=== PATIENT | male | born 1955 | race Caucasian/White ===

== ENCOUNTER 2021-02-18 09:24 | Emergency (ER) | payer SELFPAY ==
[2021-02-18 09:25] VITALS: BP 182/100; PULSE 84; RESP 14; TEMP 36.8; O2SAT 99; BMI 29.7
--- NOTE | 2021-02-18 09:51 | EDS_ITS ---
HPI History of Present Illness Chief Complaint: Abd Pain Informant: patient Narrative Narrative: Patient presents with suprapubic pressure and frequent urination. It started with frequent urination about 2 days ago. He states it does not really burgos when he urinates but he does get pressure above the bladder. He states he has had kidney stones many times but that is normally sharp pain and is very different from this. He states this is nothing like his kidney stones. He has no nausea vomiting or diaphoresis. He is eating and drinking normally. He is moving his bowels normally. His urine was cloudy initially. But he has been drinking a lot more water now and it seems to have cleared up. He does have a very slight ache in the left kidney that has developed over the last half of the day. But he states it is very mild and nothing like a kidney stone sharp pain. He does not feel systemically ill. Past medical history includes heart disease Medications include Plavix, cholesterol meds, metoprolol No known drug allergies He has had prior cardiac stents Lives independently [facility] Home Medications celecoxib 100 mg PO DAILY 02/18/21 [History Last Taken Unknown] Allergy/AdvReac Type Severity Reaction Status Date / Time No Known Allergies Allergy Verified 02/18/21 09:26 Social History Smoking Status: Never smoker ROS ROS ED Constitutional Constitutional ED: Denies chills, fever(s) or sweats Eyes Eyes: Denies blurry vision ENT ENT ED: Denies rhinorrhea Cardiovascular Cardiovascular: Denies chest pain, palpitations or racing heartbeat Respiratory/Chest Respiratory/Chest: Denies cough or dyspnea Gastrointestinal Gastrointestinal: Reports abdominal pain and other Details: See history of present illness. ; Denies constipation, diarrhea, melena, nausea or vomiting Genitourinary Genitourinary ED: Reports dysuria, urinary frequency and other Details: See present illness ; Denies hematuria Musculoskeletal Musculoskeletal: Reports back pain; Denies arthralgias or neck pain Integumentary Denies rash Neurologic Neurologic: Denies headache(s), paresthesias or weakness Endocrine Endocrinology: Denies polydipsia Allergic/Immunologic Allergic/Immunologic ED: Denies urticaria EXAM Physical Exam Const Vital Signs: 02/18/21 09:25 Temperature 98.3 F Temperature Source Temporal Pulse Rate 84 Respiratory Rate 14 Blood Pressure 182/100 H Blood Pressure Mean 127 Pulse Ox 99 Oxygen Delivery Method Room Air Positive well nourished and well developed Constitutional Narrative: Patient is sitting calmly in bed. He does not look uncomfortable. General Appearance ED: well developed and NAD HEENT Reports moist mucous membranes Negative for trauma Eyes General Eye ED: Negative for pale conjunctiva or scleral icterus Chest Wall Negative for inspection of chest normal Resp No normal respiratory effort and No clear to auscultation bilaterally Cardio Negative for regular rate or regular rhythm GI normal to inspection, nondistended, normoactive bowel sounds and non-tender GI Narrative: Patient feels a little pressure in the suprapubic area. However, there is no tenderness. There is no tenderness anywhere else in his abdomen. I hear no bruit. I feel no mass. I do not feel a definitively enlarged bladder either. Palpation: soft Back/Spine no CVA tenderness Back/Spine Narrative: Although patient states he has little soreness on the left back there is no CVA tenderness. There is no rash. No vesicles Extremity normal to inspection Neuro oriented x3 Sensorium / Orientation: alert Psych mental status grossly normal Skin no rashes or lesions noted MDM MDM MDM Narrative Medical decision making narrative: Patient's urine is clean. It is clear with negative nitrites, negative leukocyte esterase, and no red cells or white cells. His bladder scan was only 28 cc. I went back and talked to the patient. He is having symptoms but we do not have an explanation at this point. He does have a history of kidney stones. We will pursue work-up further with blood work and CT scan at this time. Blood work including CBC electrolytes show no acute process. CAT scan showed some mild left hydro and appeared to be consistent with a recently passed stone. Patient states he does feel better and has not been going to the bathroom as much as he was before. I do not think he needs any antibiotics or acute treatment. I think if he develops pain fevers vomiting or other concerns he should return. He is comfortable with this plan. Lab Data Attestation: I reviewed the patient's lab results. Labs: Laboratory Results - last 24 hr 02/18/21 02/18/21 02/18/21 09:30 10:28 10:28 WBC 6.3 RBC 5.16 Hgb 15.4 Hct 47.7 MCV 92.4 MCH 29.8 MCHC 32.3 RDW Std Deviation 46.3 H RDW Coeff of Mariza 13.5 Plt Count 182 MPV 9.4 Immature Gran % (Auto) 0.300 Neut % (Auto) 69.5 Lymph % (Auto) 22.3 [place] % (Auto) 6.0 Eos % (Auto) 1.3 Baso % (Auto) 0.6 Absolute Neuts (auto) 4.4 Absolute Lymphs (auto) 1.40 Nucleated RBC % 0 Sodium 140 Potassium 4.2 Chloride 110 H Carbon Dioxide 27.0 Anion Gap 3 L BUN 17 Creatinine 1.03 Estim Creat Clear Calc 74.81 Est GFR (MDRD) Af Amer 93 Est GFR (MDRD) Non-Af 77 BUN/Creatinine Ratio 16.5 Glucose 103 Calcium 8.6 Urine Color Yellow Urine Clarity Clear Urine pH 6.5 Ur Specific [place] 1.010 Urine Protein 15 H Urine Glucose (UA) Normal Urine Ketones Negative Urine Occult Blood 50 H Urine Nitrite Negative Urine Bilirubin Negative Urine Urobilinogen Normal Ur Leukocyte Esterase Negative Urine RBC 0 SEEN Urine WBC 0 SEEN Ur Squamous Epith Cells 0 SEEN Urine Bacteria 0 SEEN Urine Mucus 0 SEEN Radiography Diagnostic Testing: Radiology Impression Abdomen/Pelvis CT 02/18/21 10:23 IMPRESSION: Small bilateral nonobstructive intrarenal calculi. Mild degree of left hydronephrosis and left hydroureter most likely secondary to a recently passed left ureteral calculus. Electronically Signed: Shawn Hugo MD at 10:57 EDT , Service support , Discharge Plan Triage Chief Complaint: Abd Pain ED Provider: Asael James Dx/Rx/DC Orders Clinical Impression: Urinary frequency, Left renal stone Instructions: Kidney Stones Expectant Tx Prescriptions: No Action celecoxib 100 mg capsule 100 mg PO DAILY RF: 0 Primary Care Provider: Care Physician,No Primary Referrals: James Abbott MD [STAFF PHYSICIAN] - 3-5 Days if not improving Care Physician,No Primary [Primary Care Provider] - Disposition Disposition: Home, Self Care
[2021-02-18 09:53] LABS: Bacteria 0 SEEN /hpf (None Seen); Mucous, Urine 0 SEEN /hpf (<or=2+); Red Blood Cells-Urine 0 SEEN /hpf (0-5); Squamous Epithelial Cells - UA 0 SEEN /hpf (0-5); White Blood Cells 0 SEEN /hpf (0-5)
[2021-02-18 10:05] LABS: Color, Urine Yellow (Yellow); Glucose, Dipstick Normal (Normal); Ketone-Dipstick Negative (Negative); Leukocyte Esterase-Dipstick Negative /ul (Negative); Nitrite-Dipstick Negative (Negative); Occult Blood-Urine 50 /ul (Negative); Protein-Dipstick 15 mg/dl (Negative); Urine Bilirubin Dipstick Negative (Negative); Urine Clarity Clear (Clear); Urine Urobilinogen Normal (Normal); Urine pH 6.5 (5.0 - 8.0)
--- NOTE | 2021-02-18 10:23 | CT_ITS ---
STUDY: CT ABDOMEN AND PELVIS WITHOUT CONTRAST REASON FOR EXAM: Male, 65 years old. Abdominal pain and flank pain since yesterday. RADIATION DOSAGE (If Supplied By Facility): CTDIvol = ( 14.18 ) mGy, DLP = ( 730.67 ) mGycm TECHNIQUE: Transaxial images were obtained from the dome of the diaphragm to the symphysis pubis without oral contrast, and without intravenous contrast. Sagittal and coronal images were reconstructed. Individualized dose optimization techniques were used for this CT. COMPARISON: None. FINDINGS: The visualized lung bases are unremarkable. Coronary artery calcification. Normal liver. Normal gallbladder and extrahepatic biliary system. There are multiple benign calcified granulomata of the spleen. Normal pancreas. Normal bilateral adrenal glands. There is a 2.5 mm nonobstructive calculus in the upper pole calyx of the right kidney. Mild degree of left hydronephrosis and left hydroureter down to the ureterovesical junction. A tiny calcific density is seen at the base of the bladder on the left side suggestive of recently passed calculus. There is evidence of a 2.5 mm nonobstructive calculus in the lower pole calyx of the left kidney. This also evidence of a 1.6 cm cyst in the anterior lateral portion of the left kidney. Normal visualized stomach. Normal small intestine. There are multiple colonic diverticula consistent with diverticulosis. The appendix is visualized and appears normal. There is diffuse atherosclerotic calcification of the abdominal aorta and its major visceral branches, without a demonstrated aneurysm. Normal inferior vena cava. Normal retroperitoneum. Normal urinary bladder. There is a small umbilical hernia containing fat. There are mild degenerative changes of the visualized lumbar spine. CT/Abdomen/Pelvis without Cont IMPRESSION: Small bilateral nonobstructive intrarenal calculi. Mild degree of left hydronephrosis and left hydroureter most likely secondary to a recently passed left ureteral calculus. Electronically Signed: Shawn Hugo MD at 10:57 EDT , Service support ,
[2021-02-18 10:35] LABS: Absolute Neutrophil Count 4.4 X10^3/uL (2.0-7.7); Basophil# 0.04 X10^3/uL; Basophil% 0.6 % (0-1); Eosinophil# 0.08 X10^3/uL; Eosinophils% 1.3 % (0-5); Hematocrit 47.7 % (40-54); Hemoglobin 15.4 g/dL (13.0-16.5); Lymphocyte % 22.3 % (19-41); Mean Corp Hgb Conc 32.3 g/dL (32-36); Mean Corpuscular Hgb 29.8 pg (27.0-32.0); Mean Corpuscular Volume 92.4 fL (80-94); Mean Platelet Vol. 9.4 fl (6.2-12.0); Monocyte# 0.38 X10^3/uL; NRBC Flagged by Analyzer 0 % (0-5); Neutrophil # 4.37 X10^3/uL (2.7-7.7); Neutrophil % 69.5 % (47-70); Platelet Count 182 K/mm3 (150-450); RBC Distribution Width CV 13.5 % (11.6-14.6); RBC Distribution Width SD 46.3 fl (35.1-43.9); Red Blood Count 5.16 M/mm3 (4.6-6.2); White Blood Count 6.3 K/mm3 (4.4-11.0)
[2021-02-18 10:51] LABS: Anion Gap 3 (5-15); BUN 17 mg/dL (7-18); BUN/Creat Ratio 16.5 RATIO (10-20); Calcium,Total 8.6 mg/dL (8.5-10.1); Chloride 110 mmol/L (98-107); Creatinine, Serum 1.03 mg/dL (0.70-1.30); EST Glomerular Filtration Rate 77 mL/min (>60); Est Glom Filt Rate - Afr Amer 93 mL/min (>60); Estimated Creatinine Clearance 74.81 ml/min; Glucose 103 mg/dL (74-106); Potassium 4.2 mmol/L (3.5-5.1); Sodium Level 140 mmol/L (136-145)
== END 2021-02-18 12:01 | disposition home or self-care (01) ==
PROVIDERS: Emergency Provider Emergency Medicine
DX: N13.2 Hydronephrosis with renal and ureteral calculous obstruction (principal); R35.0 Frequency of micturition; Z87.442 Personal history of urinary calculi
CPT/HCPCS: 74176; 80048; 81001; 85025; 87086; 99283; A4216

== ENCOUNTER 2021-08-03 15:38 | Emergency (ER) | payer MEDICAID, SELFPAY ==
[2021-08-03 15:39] VITALS: BP 173/86; PULSE 78; RESP 16; TEMP 35.8; O2SAT 100; BMI 29.7
[2021-08-03 15:42] VITALS: BP 173/86; PULSE 78; RESP 16; TEMP 35.8; O2SAT 100
[2021-08-03 15:51] VITALS: O2SAT 100
--- NOTE | 2021-08-03 15:52 | EKG12_ITS ---
Test Reason : CP Blood Pressure : / mmHG Vent. Rate : 069 BPM Atrial Rate : 069 BPM P-R Int : 144 ms QRS Dur : 090 ms QT Int : 430 ms P-R-T Axes : 019 039 029 degrees QTc Int : 460 ms Normal sinus rhythm Normal ECG Confirmed by ABUNDIO MANRIQUE, SCOTTIE ([id number]), newspaper managing editor SARAH NEFF ([id number]) on 08/05/2021 10:17:22 AM Referred By: Confirmed By:SCOTTIE DEL CASTILLO MD
--- NOTE | 2021-08-03 15:53 | EDS_ITS ---
HPI History of Present Illness Chief Complaint: Shortness of Breath Informant: patient Onset/Context/Timing Onset: Days Maximum Severity: Moderate Narrative Narrative: Patient presents secondary to increase shortness of breath with nausea, vomiting, fever, body aches. He states he developed mild symptoms over the weekend and tested positive for Covid yesterday. He feels he has chest felipe estion but is not bringing up any sputum when he coughs. He is a smoker but denies any underlying lung disease. He is unvaccinated. [facility] Medical History Kidney stone Home Medications aspirin 81 mg PO DAILY 08/03/21 [History Last Taken Unknown] guaifenesin [Mucinex] 1,200 mg PO BID PRN #10 tab 08/03/21 [Rx Last Taken Unknown] metoprolol tartrate 50 mg PO DAILY 08/03/21 [History Last Taken Unknown] promethazine 25 mg PO TID PRN #20 tab 08/03/21 [Rx Last Taken Unknown] ramipril 2.5 mg PO DAILY 08/03/21 [History Last Taken Unknown] Allergy/AdvReac Type Severity Reaction Status Date / Time No Known Allergies Allergy Verified 08/03/21 15:38 Social History Smoking Status: Never smoker ROS ROS ED Constitutional Constitutional ED: Reports chills and fever(s) Eyes Eyes: Denies change in vision ENT ENT ED: Denies sore throat Cardiovascular Cardiovascular: Denies chest pain or palpitations Respiratory/Chest Respiratory/Chest: Reports cough and dyspnea; Denies sputum Gastrointestinal Gastrointestinal: Reports diarrhea, nausea and vomiting; Denies abdominal pain Genitourinary Genitourinary ED: Denies dysuria Musculoskeletal Musculoskeletal: Reports myalgias; Denies back pain Integumentary Denies rash Neurologic Neurologic: Reports headache(s) and weakness Allergic/Immunologic Allergic/Immunologic ED: Denies urticaria EXAM Physical Exam Const Vital Signs: 08/03/21 15:39 08/03/21 15:42 08/03/21 15:51 Temperature 96.5 F L 96.5 F L Temperature Source Temporal Temporal Pulse Rate 78 78 Respiratory Rate 16 16 Respiratory Effort Normal Non-Labored Respiratory Depth Normal Respiratory Pattern Normal Blood Pressure 173/86 H 173/86 H Blood Pressure Mean 115 115 Pulse Ox 100 100 Oxygen Delivery Method Room Air Room Air Room Air 08/03/21 16:24 08/03/21 16:40 Temperature Temperature Source Pulse Rate 76 Respiratory Rate 20 H Respiratory Effort Respiratory Depth Respiratory Pattern Blood Pressure 154/69 H Blood Pressure Mean 97 Pulse Ox 97 Oxygen Delivery Method Room Air Positive well nourished and well developed General Appearance ED: well developed HEENT Reports moist mucous membranes Eyes PERRL and EOMs intact bilaterally Neck supple Chest Wall inspection of chest normal and palpation of chest normal Resp normal respiratory effort and clear to auscultation bilaterally Cardio regular rate and regular rhythm GI non-tender Auscultation: hypoactive bowel sounds Palpation: soft Extremity normal to inspection Neuro oriented x3 and no sensory deficits noted Sensorium / Orientation: alert Motor Exam: strength 5/5 throughout Psych mental status grossly normal Skin no rashes or lesions noted MDM MDM MDM Narrative Medical decision making narrative: Patient given Zofran and a 500 cc IV fluid bolus. Chest x-ray, EKG, lab work obtained. Lab Data Attestation: I reviewed the patient's lab results. Labs: Laboratory Results - last 24 hr 08/03/21 08/03/21 08/03/21 15:50 15:50 16:05 WBC 3.3 L RBC 4.60 Hgb 14.4 Hct 42.9 MCV 93.3 MCH 31.3 MCHC 33.6 RDW Std Deviation 48.0 H RDW Coeff of Mariza 14.0 Plt Count 152 MPV 10.0 Immature Gran % (Auto) 0.900 Neut % (Auto) 56.5 Lymph % (Auto) 34.2 [place] % (Auto) 7.2 Eos % (Auto) 0.9 Baso % (Auto) 0.3 Absolute Neuts (auto) 1.9 L Absolute Lymphs (auto) 1.14 Nucleated RBC % 0 Sodium 139 Potassium 3.5 Chloride 105 Carbon Dioxide 28.0 Anion Gap 6 BUN 20 H Creatinine 1.19 Estim Creat Clear Calc 63.90 Est GFR (MDRD) Af Amer 79 Est GFR (MDRD) Non-Af 65 BUN/Creatinine Ratio 16.8 Glucose 94 Lactic Acid 1.3 Calcium 8.1 L Total Bilirubin 0.30 AST 104 H ALT 154 H Alkaline Phosphatase 113 Total Protein 6.8 Albumin 3.3 Globulin 3.5 Albumin/Globulin Ratio 0.9 Radiography Chest X-Ray - ED: 1 View, Read by ED Physician, Normal, Heart, Lungs and Mediastinum Diagnostic Testing: Clinical Impression(s) from Imaging Studies Chest X-Ray 08/03/21 15:55 IMPRESSION: Nonacute portable x-ray examination of the chest. Electronically Signed: Bharat Bernstein MD (Brooks) at 16:09 EST Reading Location ID and State: [address] [place] [address] , Service support , EKG Initial EKG: Attestation: I personally reviewed and interpreted this EKG as follows: Interpretation: Sinus Rhythm (Sinus at 69 with no acute ischemia.) Treatment and Re-Evaluation Comments:: On repeat evaluation patient resting comfortably. Test results discussed with him. Chest x-ray is clear per my interpretation. Lab work unremarkable other than a slight increase in ALT and AST. This is often seen with Covid infection. Patient reportedly had tried Zofran at home but it gave him a headache. He will be given prescription for Phenergan as well as Mucinex. Supportive measures were discussed. Return instructions given. Discharge Plan Triage Chief Complaint: Shortness of Breath ED Provider: Laurence Mast Dx/Rx/DC Orders Clinical Impression: COVID-19 Instructions: Coronavirus Disease 2019 (COVID-19): Overview, Coronavirus Disease 2019 (COVID-19): Caring for Yourself or Others Prescriptions: New promethazine 25 mg tablet 25 mg PO TID PRN (Reason: nausea and vomiting) Qty: 20 RF: 0 Mucinex 1,200 mg tablet extended release 12hr 1,200 mg PO BID PRN (Reason: congestion) Qty: 10 RF: 0 No Action ramipril 2.5 mg capsule 2.5 mg PO DAILY RF: 0 metoprolol tartrate 50 mg tablet 50 mg PO DAILY RF: 0 aspirin 81 mg Capsule 81 mg PO DAILY RF: 0 Primary Care Provider: Harvinder Franklin Referrals: Harvinder Franklin MD [Primary Care Provider] - 1-2 Weeks Disposition Disposition: Home, Self Care
--- NOTE | 2021-08-03 15:55 | RAD_ITS ---
STUDY: X-RAY CHEST REASON FOR EXAM: Male, 66 years old. cough TECHNIQUE: AP COMPARISON: None. FINDINGS: EKG leads project over the chest. The lungs are clear and expanded. There is no demonstrated pleural abnormality. Normal size heart. Normal mediastinum and chaparro. Normal visualized pulmonary arteries. Normal visualized aortic arch and descending thoracic aorta. Normal visualized thoracic spine. Normal visualized ribs, clavicles, and shoulders. There is no demonstrated abnormality of the visualized soft tissue structures of the upper abdomen. RAD/Chest 1 View (Portable) IMPRESSION: Nonacute portable x-ray examination of the chest. Electronically Signed: Bharat Bernstein MD (Brooks) at 16:09 EST ,
[2021-08-03] MEDS: Ondansetron 4 MG/2 ML Vial IV (16:03)
--- NOTE | 2021-08-03 16:08 | NURSING ---
NO OLD EKGS
[2021-08-03 16:16] LABS: Absolute Lymphocyte Count 1.14 X10^3/uL (0.83-4.51); Absolute Neutrophil Count 1.9 X10^3/uL (2.0-7.7); Basophil# 0.01 X10^3/uL; Basophil% 0.3 % (0-1); Eosinophil# 0.03 X10^3/uL; Eosinophils% 0.9 % (0-5); Hematocrit 42.9 % (40-54); Hemoglobin 14.4 g/dL (13.0-16.5); Lymphocyte # 1.14 X10^3/ul (0.83-4.51); Lymphocyte % 34.2 % (19-41); Mean Corp Hgb Conc 33.6 g/dL (32-36); Mean Corpuscular Hgb 31.3 pg (27.0-32.0); Mean Corpuscular Volume 93.3 fL (80-94); Monocyte# 0.24 X10^3/uL; Monocyte% 7.2 % (0-10); NRBC Flagged by Analyzer 0 % (0-5); Neutrophil # 1.88 X10^3/uL (2.7-7.7); Neutrophil % 56.5 % (47-70); Platelet Count 152 K/mm3 (150-450); White Blood Count 3.3 K/mm3 (4.4-11.0)
[2021-08-03 16:24] VITALS: PULSE 76; RESP 20; O2SAT 97
[2021-08-03 16:33] LABS: ALB/GLOB Ratio 0.9 RATIO (0.9-2.4); AST(SGOT) 104 U/L (15-37); Alanine Aminotransfer ALT/SGPT 154 U/L (16-61); Albumin, Serum 3.3 g/dL (3.2-5.0); Alkaline Phosphatase 113 U/L (45-117); Anion Gap 6 (5-15); BUN 20 mg/dL (7-18); BUN/Creat Ratio 16.8 RATIO (10-20); Calcium,Total 8.1 mg/dL (8.5-10.1); Chloride 105 mmol/L (98-107); Creatinine, Serum 1.19 mg/dL (0.70-1.30); EST Glomerular Filtration Rate 65 mL/min (>60); Est Glom Filt Rate - Afr Amer 79 mL/min (>60); Globulin 3.5 g/dL (2.2-4.2); Glucose 94 mg/dL (74-106); Potassium 3.5 mmol/L (3.5-5.1); Protein, Total 6.8 g/dL (6.4-8.2); Sodium Level 139 mmol/L (136-145)
[2021-08-03 16:40] VITALS: BP 154/69
[2021-08-03 16:42] LABS: Lactic Acid 1.3 mmol/L (0.4-1.9)
--- NOTE | 2021-08-04 16:40 | CASEMGMT ---
ER DC F/u Call: Seen in ER 2.03.16 for +Covid day prior to presentation. CC: SOB. DC'd with no Home O2 needed. Called patient's listed number, patient answered and this continuity writer introduced self and role. Patient states felling better today and able to get/keep PO's down which is an improvement. Confirmed picked up DC rx Mucinex and antiemetic. Does not have a Pulse Ox at home and encouraged patient to obtain one to test O2 levels if feeling worse and goal to keep oxygenation >91%. Has called PCP Dr Franklin and was told had to wait 20 days prior to office f/u. Patient denies any concerns or needs at this time. Kaitlynn Butts RNCM
== END 2021-08-03 17:15 | disposition home or self-care (01) ==
PROVIDERS: Emergency Provider Emergency Medicine; PCP Family Medicine; Visit Provider Emergency Medicine
DX: U07.1 COVID-19 (principal); F17.200 Nicotine dependence, unspecified, uncomplicated; Z87.442 Personal history of urinary calculi
CPT/HCPCS: 71045; 80053; 83605; 85025; 93005; 96361; 96374; 99284; J7030; J2405

== ENCOUNTER 2022-04-24 08:47 | Emergency (ER) | payer MEDICARE, MEDICAID, SELFPAY ==
[2022-04-24 08:48] VITALS: BP 166/85; PULSE 82; RESP 16; TEMP 36.3; O2SAT 97; BMI 31.5
--- NOTE | 2022-04-24 09:32 | EDS_ITS ---
HPI HPI - Psych History of Present Illness Chief Complaint: Mental Health Informant: patient Narrative Narrative: Patient sent to the ED after calling his PCP office for evaluation. Reports having depression symptoms. Patient moved here from [place] 2 years ago, staying with his 43-year-old son. Reports he lived in [place] for 23 years. He is . 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 He was on Worker's Compensation for the past 18 months. He states 3 to 4 months ago Worker's Compensation was canceled. He has been applying for multiple jobs, 2 months ago had a job for a month however the position was discontinued. He is having trouble finding work. He had a savings account, his son has required more additional money for assistance. He states he is now out of money. His son actually took in 4 other step nephews and nieces to the home. Between patient and 2 of the nieces and nephews, they are paying the rent. He reports his son is still having trouble paying the bills for some reason. His son is into alcohol and marijuana. Patient does not drink alcohol or smoke marijuana. He states with no job and income he stays in his room he has decreased motivation. He had had thoughts stated better if he is not around he has not had any specific plans. He applied for Social Security he states 2 months ago states he has been approved to start in May. He is here looking for enlightenment. [facility] Medical History (Updated 04/24/22 @ 11:[address] Jatinder Ruano, DO) Back injury Kidney stone Home Medications aspirin 81 mg capsule 81 mg PO DAILY 08/03/21 [History Last Taken Unknown] metoprolol tartrate 50 mg tablet 50 mg PO DAILY 08/03/21 [History Last Taken Unknown] ramipril 2.5 mg capsule 10 mg PO DAILY 08/03/21 [History Last Taken Unknown] gabapentin 300 mg capsule 300 mg PO BID 04/24/22 [History Last Taken Unknown] lansoprazole 30 mg capsule,delayed release 30 mg PO DAILY 04/24/22 [History Last Taken Unknown] rosuvastatin 40 mg tablet 40 mg PO QHS 04/24/22 [History Last Taken Unknown] Allergy/AdvReac Type Severity Reaction Status Date / Time No Known Allergies Allergy Verified 04/24/22 08:51 Surgical History (Updated 04/24/22 @ 09:45 by Su Lara) H/O heart artery stent Social History Smoking Status: Current every day smoker tobacco type: cigarettes ROS ROS ED Constitutional Constitutional ED: Denies chills, fever(s) or sweats Eyes Eyes: Denies change in vision ENT ENT ED: Denies dysphagia or sore throat Cardiovascular Cardiovascular: Denies chest pain, leg edema, palpitations or racing heartbeat Respiratory/Chest Respiratory/Chest: Denies cough, dyspnea or dyspnea on exertion Gastrointestinal Gastrointestinal: Denies abdominal pain, diarrhea, nausea or vomiting Genitourinary Genitourinary ED: Denies dysuria, hematuria or urinary frequency Musculoskeletal Musculoskeletal: Denies back pain, extremity pain or neck pain Integumentary Denies rash or wounds Neurologic Neurologic: Denies headache(s), paresthesias or weakness Psychiatric Psychiatric: Reports depression; Denies suicidal ideation or suicidal thoughts EXAM Physical Exam Const Vital Signs: 04/24/22 08:48 Temperature 97.3 F L Temperature Source Temporal Pulse Rate 82 Respiratory Rate 16 Blood Pressure 166/85 H Blood Pressure Mean 112 Pulse Ox 97 Oxygen Delivery Method Room Air Positive well nourished and well developed General Appearance ED: well developed and NAD HEENT Reports moist mucous membranes normocephalic and atraumatic Eyes PERRL, EOMs intact bilaterally and conjunctivae normal General Eye ED: Yes normal appearance of both eyes Neck no lymphadenopathy and supple General: Negative for tenderness Chest Wall Chest: Negative for tenderness Resp normal respiratory effort and normal air movement Effort and Inspection: symmetric chest movement; Negative for respiratory distress Cardio regular rate, regular rhythm and no murmurs Peripheral Pulses: pulses 2+ throughout GI normal to inspection, nondistended, normoactive bowel sounds and non-tender Palpation: Negative for guarding or rebound tenderness present Back/Spine no CVA tenderness and no thoracic nor lumbar tenderness Extremity normal to inspection General Extremety ED: Negative for edema or tenderness General Extremity: Negative for edema Neuro oriented x3 and no sensory deficits noted Sensorium / Orientation: awake and alert Psych Psych Narrative: Slight flat affect, however open communication,. Denies current suicidal homicidal ideations. Skin no rashes or lesions noted and no wounds MDM MDM MDM Narrative Medical decision making narrative: Patient cooperative slight flat affect reported increasing depression, this is likely situational with his job and financial situation. I did speak with case management, discussed with patient in the ED, additional resources to help him. He felt better after discussing with them. They will follow-up with his PCP. All questions were answered. Discharge Plan Triage Chief Complaint: Mental Health ED Provider: Jatinder Ruano Dx/Rx/DC Orders Clinical Impression: Depression, Acute reaction to situational stress Instructions: Depression: Tips to Help Yourself, ED Depression Prescriptions: No Action ramipril 2.5 mg capsule 10 mg PO DAILY Label Comments: TAKE 1 CAPSULE BY MOUTH EVERY DAY metoprolol tartrate 50 mg tablet 50 mg PO DAILY Label Comments: TAKE 1 TABLET BY MOUTH TWICE A DAY aspirin 81 mg Capsule 81 mg PO DAILY lansoprazole 30 mg capsule,delayed release(DR/EC) 30 mg PO DAILY Label Comments: Take 1 capsule by mouth once daily. gabapentin 300 mg capsule 300 mg PO BID Label Comments: Take 1 capsule in morning, 1 capsule in afternoon and 2 capsules at night rosuvastatin 40 mg tablet 40 mg PO QHS Label Comments: TAKE 1 TABLET BY MOUTH DAILY AT BEDTIME Primary Care Provider: Harvinder Franklin Referrals: Harvinder Franklin MD [Primary Care Provider] - 3-5 Days Disposition Disposition: Home, Self Care Discharge Date/Time: 04/24/22 11:25
--- NOTE | 2022-04-24 14:11 | CM.ED ---
? Social Work Psychiatric Assessment Reason for consult: Mental Health. Patient had called PCP this morning regarding depression and the PCP had advised patient to come to the ED. Informant(s): Patient Referral Source: MD Chief Complaint: Patient reports that he came to the ED as ?there is a lot of things leading up to it?. Patient said that he has lived in [place] for 23 year and moved back to [place] with his son for 2 years. Patient said that he was on Workman?s? Comp for a period of time but they discontinued it 2-3 months ago. Patient has no income. Patient has found jobs in the past and went to the interview but was never hired. Patient resides with his son and patient has used all of his savings as his son runs out of money. Patient reports that he has no money and one week ago her electric was shut off. Patient said that his son has ?cleaned me out.. I m broke?. Patient said that one year ago patient?s son moved his 3 nieces and 1 nephew into the home also. Patient said that he has running thoughts that are ?what do I do?. Patient said that he has not eaten anything for 2 days and what he ate was green beans. Patient said that he is not getting up to shower and has not gone to the gym for 2 weeks. Patient said that ?I can?t figure things out? and he is ?not feeling right?. Patient said that he is not sleeping well. Marital/Social History: Marital Status: Living Situation: Patient resides with his son, son?s nieces, and nephews in a residence. Support/Resources: Patient said that he has no support. Later patient said that previously his support was his 14-year old granddaughter but as she is a teen ?she doesn?t have time for me?. 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 Patient is not employed. He has been approved for social security in May 2022. Mental Health Treatment/History: Yes No Patient said that he has never been to counseling, never had mental health treatment and no psych hospitalization. Patient reports he is not interested in counseling. Triggers/Stressors: Patient said that his triggers are his son and money. Coping Skills: Patient said that he used to go to the gym for coping skills but hasn?t been there for 2 weeks. Patient said that he has not gone to the gym for 2 weeks. Abuse Issues: Emotional?? Physical??? Sexual ???Comments: No history of abuse Substance Abuse Hx: Yes?? No? If so, what substance and for how long? Risk to Self/Others: ? Suicidal: Denied Comments: Patient denied any current SI. Patient denied plans or attempts regarding suicide. ? Homicidal: Denied ? Violence: Denied Comments: Mental Status Exam: ??? Orientation: x4 ??? Memory: Good Appearance/General Behavior: clean/appropriate Mood/Affect: appropriate Communication Pattern: responds to questions in Thought Process: appropriate General Intellectual Functioning:? Average? Comment: Judgment: ? fair?? ? Insight: fair??? GISEL consulted with MD Rodriguez. MD Rodriguez agrees that patient does not meet inpatient psych criteria as he is not voicing SI/HI currently. Patient was advised to follow up with PCP regarding medication. GISEL provided patient with [address] list, information on [place] Medicaid, information on [employer], information on [employer], information on Workforce Development and information about [facility] Workforce development. Plan: Discharge home with resources. Patient advised to follow up with PCP. Patient advised that if he has any SI/HI to come back to the ED. Patient verbalized understanding. Katelyn BERG
--- NOTE | 2022-04-25 19:28 | CM.ED ---
GISEL Note GISEL called patient at 10:53am on 04/25 and the phone rang 2x and disconnected. On 04/25/22 at 7:35 GISEL called and left voice mail for patient following up on how he was doing. Patient was advised to call this gag writer on Sunday or coworkers on Sunday and to update on how he was doing. Katelyn EBRG
== END 2022-04-24 11:25 | disposition home or self-care (01) ==
PROVIDERS: Emergency Provider Emergency Medicine; PCP Family Medicine; Visit Provider Emergency Medicine
DX: F32.A Depression, unspecified (principal); F43.0 Acute stress reaction; F17.210 Nicotine dependence, cigarettes, uncomplicated; Z79.82 Long term (current) use of aspirin; Z79.899 Other long term (current) drug therapy
CPT/HCPCS: 99282

== ENCOUNTER 2024-07-04 07:20 | Emergency (ER) | payer MEDICARE, SELFPAY ==
[2024-07-04 07:20] VITALS: BP 185/80; PULSE 69; RESP 20; TEMP 36.7; O2SAT 98; BMI 32.8
--- NOTE | 2024-07-04 07:39 | EKG12_ITS ---
Test Reason : Blood Pressure : */* mmHG Vent. Rate : 67 BPM Atrial Rate : 67 BPM P-R Int : 166 ms QRS Dur : 94 ms QT Int : 410 ms P-R-T Axes : 13 42 28 degrees QTcB Int : 433 ms Normal sinus rhythm Normal ECG Confirmed by Bubba Mcgill ([id number]), video news editor POLINA MÉNDEZ ([id number]) on 07/07/2024 10:18:26 AM Referred By: Confirmed By: Bubba Mcgill
--- NOTE | 2024-07-04 07:39 | RAD_ITS ---
STUDY: X-RAY CHEST REASON FOR EXAM: Male, 69 years old. PND TECHNIQUE: PA and lateral views of the chest. COMPARISON: None. FINDINGS: The lungs are clear and expanded. There is no demonstrated pleural abnormality. Normal size heart. Normal mediastinum and chaparro. Normal visualized pulmonary arteries. Normal visualized aortic arch and descending thoracic aorta. There are degenerative changes of the visualized thoracic spine. Normal visualized ribs, clavicles, and shoulders. There is no demonstrated abnormality of the visualized soft tissue structures of the upper abdomen. RAD/Chest PA and Lateral IMPRESSION: Normal x-ray examination of the chest. Electronically Signed: Shawn Hugo MD at 8:36 EST ,
--- NOTE | 2024-07-04 07:40 | EX.ED.DYSGE1 ---
HPI History of Present Illness Chief Complaint: General Illness Informant: patient Narrative Narrative: 69-year-old male presents to the emergency department 7:30 AM because of dyspnea whenever he was lying down overnight. It woke him up. Lying on either side gave him dyspnea or lying supine on his back. Sitting up made it better. No dyspnea with exertion or walking this morning subsequently. No chest discomfort. No recent cough or nasal congestion. No GI symptoms. He states coincidentally he just started taking ferrous sulfate prescribed by his doctor and he took the first pill last night before going to bed. No other medication changes. [facility] Medical History Hyperlipidemia Hypertension Back injury Kidney stone Home Medications ?Medication ?Instructions ?Recorded ?Last Taken ?Type aspirin 81 mg capsule 81 mg PO DAILY 08/03/21 Unknown History metoprolol tartrate 50 mg tablet 50 mg PO DAILY 08/03/21 Unknown History ramipril 2.5 mg capsule 10 mg PO DAILY 08/03/21 Unknown History gabapentin 300 mg capsule 300 mg PO BID 04/24/22 Unknown History lansoprazole 30 mg capsule,delayed 30 mg PO DAILY 04/24/22 Unknown History release rosuvastatin 40 mg tablet 40 mg PO QHS 04/24/22 Unknown History Allergy/AdvReac Type Severity Reaction Status Date / Time No Known Allergies Allergy Verified 07/04/24 07:23 Surgical History H/O heart artery stent Social History Smoking Status: Former smoker ROS ROS ED Constitutional Constitutional ED: Denies chills or fever(s) Eyes Eyes: Denies change in vision or diplopia ENT ENT ED: Denies rhinorrhea or sore throat Cardiovascular Cardiovascular: Reports orthopnea and paroxysmal nocturnal dyspnea; Denies chest pain, leg edema, lightheadedness, palpitations, radiating jaw, neck or arm pain or syncope Respiratory/Chest Respiratory/Chest: Reports orthopnea and paroxysmal nocturnal dyspnea; Denies cough or dyspnea on exertion Gastrointestinal Gastrointestinal: Denies abdominal pain, diarrhea, nausea or vomiting Genitourinary Genitourinary ED: Denies dysuria or hematuria Musculoskeletal Musculoskeletal: Denies back pain or neck pain Integumentary Denies abscess or rash Neurologic Neurologic: Denies headache(s), paresthesias or weakness EXAM Physical Exam Const Vital Signs: 07/04/24 07:20 07/04/24 07:39 07/04/24 08:41 Temperature 98.1 F Temperature Source Oral Pulse Rate 69 54 L Respiratory Rate 20 H 17 Blood Pressure 185/80 H 150/64 H Blood Pressure Mean 115 92 Pulse Ox 98 95 Oxygen Delivery Method Room Air Room Air Room Air Positive well nourished and well developed General Appearance ED: well developed and NAD HEENT Reports moist mucous membranes normocephalic and atraumatic Eyes PERRL and EOMs intact bilaterally Neck full ROM, supple and no JVD Resp normal respiratory effort and clear to auscultation bilaterally Resp Narrative: Occasional end expiratory wheeze left base, not consistent otherwise clear Cardio regular rate, regular rhythm and no murmurs GI non-tender and non-distended Auscultation: normoactive bowel sounds Palpation: soft Back/Spine no CVA tenderness General Back: other FROM Extremity normal to inspection General Extremety ED: Negative for edema, pulses abnormal or tenderness General Extremity: Negative for edema or pulses abnormal Neuro oriented x3, CN's II-XII intact bilaterally and no sensory deficits noted Sensorium / Orientation: awake and alert Motor Exam: strength 5/5 throughout Psych mental status grossly normal Skin no rashes or lesions noted and no wounds MDM MDM MDM Narrative Medical decision making narrative: Patient states he was diagnosed with sleep apnea 30 years ago does not use CPAP. That is in the differential here. We will order test to evaluate for the possibility of pulmonary edema although he does not sound like it clinically, pleural effusion, congestive heart failure, acute coronary syndrome, pneumonia. Two-view chest x-ray on my interpretation is normal radiology was in agreement. His EKG is normal. His troponin and BNP are normal, he is a little anemic but not enough to cause the symptoms. He has a mild creatinine elevation that should be followed but in context is not causing any of these issues. His sleep apnea could be related. His blood pressure was elevated in triage 185/180; on recheck, it is 150/64, much more reassuring. This can be rechecked as an outpatient. I do not think his new iron supplementation is causing this unless it is causing reflux at night causing him to wake up and feel poorly. Reassured, advised to follow-up with his doctor but stable for discharge. Lab Data Attestation: I reviewed the patient's lab results. Labs: Laboratory Results - last 24 hr 07/04/24 07:48 WBC 4.9 RBC 4.19 L Hgb 11.1 L Hct 36.3 L MCV 86.6 MCH 26.5 L MCHC 30.6 L RDW Std Deviation 48.6 H RDW Coeff of Mariza 15.4 H Plt Count 162 MPV 10.4 Immature Gran % (Auto) 0.400 Neut % (Auto) 67.0 Lymph % (Auto) 22.1 Worth % (Auto) 7.1 Eos % (Auto) 2.8 Baso % (Auto) 0.6 Absolute Neuts (auto) 3.3 Absolute Lymphs (auto) 1.09 Nucleated RBC % 0 Sodium 139 Potassium 4.0 Chloride 108 H Carbon Dioxide 25.0 Anion Gap 6 BUN 19 H Creatinine 1.34 H Estim Creat Clear Calc 63.69 Est GFR (MDRD) Af Amer 68 Est GFR (MDRD) Non-Af 56 L BUN/Creatinine Ratio 14.2 Glucose 140 H Calcium 8.5 Troponin I High Sens 9 B-Natriuretic Peptide 26.8 Radiography Diagnostic Testing: Clinical Impression(s) from Imaging Studies Chest X-Ray 07/04/24 07:39 IMPRESSION: Normal x-ray examination of the chest. Electronically Signed: Shawn Hugo MD at 8:36 EST Reading Location ID and State: 3 [facility] , Service support , Rhythm Strip Rhythm Strip: Sinus Rhythm Rate: 70 Ectopy: None EKG Initial EKG: Attestation: I personally reviewed and interpreted this EKG as follows: Interpretation: Sinus Rhythm and No Acute Injury Pattern Comments: Nml axis & intervals; nml EKG Discharge Plan Triage Chief Complaint: General Illness ED Provider: Jerry Agrawal Dx/Rx/DC Orders Clinical Impression: Orthopnea, Episode of hypertension Instructions: ED Dyspnea, ED Hypertension, Established Prescriptions: No Action ramipril 2.5 mg capsule 10 mg PO DAILY Patient Comments: TAKE 1 CAPSULE BY MOUTH EVERY DAY metoprolol tartrate 50 mg tablet 50 mg PO DAILY Patient Comments: TAKE 1 TABLET BY MOUTH TWICE A DAY aspirin 81 mg Capsule 81 mg PO DAILY lansoprazole 30 mg capsule,delayed release(DR/EC) 30 mg PO DAILY Patient Comments: Take 1 capsule by mouth once daily. gabapentin 300 mg capsule 300 mg PO BID Patient Comments: Take 1 capsule in morning, 1 capsule in afternoon and 2 capsules at night rosuvastatin 40 mg tablet 40 mg PO QHS Patient Comments: TAKE 1 TABLET BY MOUTH DAILY AT BEDTIME Primary Care Provider: Harvinder Franklin Referrals: Harvinder Franklin MD [Primary Care Provider] - As soon as possible Print Language: German Disposition Disposition: Home, Self Care
[2024-07-04 07:59] LABS: Absolute Lymphocyte Count 1.09 X10^3/uL (0.83-4.51); Absolute Neutrophil Count 3.3 X10^3/uL (2.0-7.7); Basophil# 0.03 X10^3/uL; Basophil% 0.6 % (0-1); Eosinophil# 0.14 X10^3/uL; Eosinophils% 2.8 % (0-5); Hematocrit 36.3 % (40-54); Hemoglobin 11.1 g/dL (13.0-16.5); Lymphocyte # 1.09 X10^3/ul (0.83-4.51); Lymphocyte % 22.1 % (19-41); Mean Corp Hgb Conc 30.6 g/dL (32-36); Mean Corpuscular Hgb 26.5 pg (27.0-32.0); Mean Corpuscular Volume 86.6 fL (80-94); Mean Platelet Vol. 10.4 fl (6.2-12.0); Monocyte# 0.35 X10^3/uL; Monocyte% 7.1 % (0-10); NRBC Flagged by Analyzer 0 % (0-5); Neutrophil # 3.31 X10^3/uL (2.7-7.7); Platelet Count 162 K/mm3 (150-450); RBC Distribution Width CV 15.4 % (11.6-14.6); RBC Distribution Width SD 48.6 fl (35.1-43.9); Red Blood Count 4.19 M/mm3 (4.6-6.2); White Blood Count 4.9 K/mm3 (4.4-11.0)
[2024-07-04 08:24] LABS: Anion Gap 6 (5-15); BNP,B-Type NATRIURETIC PEPTIDE 26.8 pg/mL (0-100); BUN 19 mg/dL (7-18); BUN/Creat Ratio 14.2 RATIO (10-20); Calcium,Total 8.5 mg/dL (8.5-10.1); Chloride 108 mmol/L (98-107); Creatinine, Serum 1.34 mg/dL (0.70-1.30); EST Glomerular Filtration Rate 56 mL/min (>60); Est Glom Filt Rate - Afr Amer 68 mL/min (>60); Estimated Creatinine Clearance 63.69 ml/min; Glucose 140 mg/dL (74-106); Sodium Level 139 mmol/L (136-145); Troponin-I HS 9 pg/mL (3.0-78.0)
[2024-07-04 08:41] VITALS: BP 150/64; PULSE 54; RESP 17; O2SAT 95
[2024-07-04 09:15] VITALS: BP 123/61; PULSE 55; RESP 15; TEMP 36.7; O2SAT 96
== END 2024-07-04 09:21 | disposition home or self-care (01) ==
PROVIDERS: Emergency Provider Emergency Medicine; PCP Family Medicine; Visit Provider Emergency Medicine
DX: R06.01 Orthopnea (principal); D64.9 Anemia, unspecified; G47.30 Sleep apnea, unspecified; I10 Essential (primary) hypertension; E78.5 Hyperlipidemia, unspecified; Z79.82 Long term (current) use of aspirin; Z79.899 Other long term (current) drug therapy; Z87.891 Personal history of nicotine dependence
CPT/HCPCS: 71046; 80048; 83880; 84484; 85025; 93005; 99284

== ENCOUNTER 2024-07-04 12:36 | Emergency (ER) | payer MEDICARE, SELFPAY ==
[2024-07-04 12:36] VITALS: BP 167/80; PULSE 64; RESP 20; TEMP 36.2; O2SAT 97; BMI 32.8
--- NOTE | 2024-07-04 13:06 | ED.VIS.DYS ---
HPI History of Present Illness Chief Complaint: Shortness of Breath Informant: patient Narrative Narrative: Patient was just seen here couple hours ago for orthopnea that he noticed overnight. He had a negative workup. He states he went home and lied back and realized that he thinks the issue is in his nose. He states when he lies back it feels like something is occluding his ability to breathe/move air through his nose, when he sits up it is better. He states when he tries to blow his nose something cuts it off and he is not able to blow any nose through it. He denies any symptoms in the neck or below. [facility] Medical History Hyperlipidemia Hypertension Back injury Kidney stone Home Medications ?Medication ?Instructions ?Recorded ?Last Taken ?Type aspirin 81 mg capsule 81 mg PO DAILY 08/03/21 Unknown History metoprolol tartrate 50 mg tablet 50 mg PO DAILY 08/03/21 Unknown History ramipril 2.5 mg capsule 10 mg PO DAILY 08/03/21 Unknown History gabapentin 300 mg capsule 300 mg PO BID 04/24/22 Unknown History lansoprazole 30 mg capsule,delayed 30 mg PO DAILY 04/24/22 Unknown History release rosuvastatin 40 mg tablet 40 mg PO QHS 04/24/22 Unknown History Allergy/AdvReac Type Severity Reaction Status Date / Time No Known Allergies Allergy Verified 07/04/24 12:36 Surgical History H/O heart artery stent Social History Smoking Status: Former smoker ROS ROS ED ENT ENT ED: Reports as per HPI; Denies sore throat Cardiovascular Cardiovascular: Reports as per HPI and orthopnea; Denies chest pain or leg edema Respiratory/Chest Respiratory/Chest: Reports orthopnea; Denies dyspnea EXAM Physical Exam Const Vital Signs: 07/04/24 12:36 07/04/24 12:42 Temperature 97.1 F L Temperature Source Temporal Pulse Rate 64 Respiratory Rate 20 H Respiratory Effort Normal Non-Labored Respiratory Depth Normal Respiratory Pattern Normal Blood Pressure 167/80 H Blood Pressure Mean 109 Pulse Ox 97 Oxygen Delivery Method Room Air Positive well nourished and well developed General Appearance ED: well developed HEENT Reports moist mucous membranes HEENT Narrative: Posterior pharynx clear; there is no obvious edema of the uvula, it is short and prominent and midline. No stridor. No trismus. No dysphonia. No tongue elevation. Nares externally are unremarkable bilaterally. On demand, patient can breathe then and make a snoring sensation/sound. Eyes PERRL and EOMs intact bilaterally Neck no lymphadenopathy and supple Resp normal respiratory effort and clear to auscultation bilaterally Effort and Inspection: able to speak in complete sentences Extremity normal to inspection General Extremety ED: Negative for edema General Extremity: Negative for edema Neuro oriented x3, CN's II-XII intact bilaterally, no sensory deficits noted and gait normal Motor Exam: strength 5/5 throughout Psych mental status grossly normal Skin no wounds and skin turgor normal MDM MDM MDM Narrative Medical decision making narrative: Now that the patient is complaining of focal nasal/soft palate type symptoms, this could be a early uvulitis, some other type of soft palate reason for him to have trouble moving air through his nose. I do not think he needs any more emergent workup, but I ordered nursing to give him a couple of sprays of oxymetazoline in his nose and to be observed. After this he said it really helped. Discussed symptomatic use at home. Discharge Plan Triage Chief Complaint: Shortness of Breath ED Provider: Jerry Agrawal Dx/Rx/DC Orders Clinical Impression: Soft palate edema Instructions: ED Uvulitis Prescriptions: No Action ramipril 2.5 mg capsule 10 mg PO DAILY Patient Comments: TAKE 1 CAPSULE BY MOUTH EVERY DAY metoprolol tartrate 50 mg tablet 50 mg PO DAILY Patient Comments: TAKE 1 TABLET BY MOUTH TWICE A DAY aspirin 81 mg Capsule 81 mg PO DAILY lansoprazole 30 mg capsule,delayed release(DR/EC) 30 mg PO DAILY Patient Comments: Take 1 capsule by mouth once daily. gabapentin 300 mg capsule 300 mg PO BID Patient Comments: Take 1 capsule in morning, 1 capsule in afternoon and 2 capsules at night rosuvastatin 40 mg tablet 40 mg PO QHS Patient Comments: TAKE 1 TABLET BY MOUTH DAILY AT BEDTIME Primary Care Provider: Harvinder Franklin Referrals: Harvinder Franklin MD [Primary Care Provider] - 3-5 Days if not improving Print Language: Dutch Disposition Disposition: Home, Self Care
[2024-07-04] MEDS: Oxymetazoline 0.05% 1 SPRAY SPRAY.BTL 2 SPRAY NASAL (13:34)
== END 2024-07-04 14:09 | disposition home or self-care (01) ==
PROVIDERS: Emergency Provider Emergency Medicine; PCP Family Medicine; Visit Provider Emergency Medicine
DX: R60.0 Localized edema (principal); R06.02 Shortness of breath; I10 Essential (primary) hypertension; E78.5 Hyperlipidemia, unspecified; Z79.82 Long term (current) use of aspirin; Z79.899 Other long term (current) drug therapy; Z87.891 Personal history of nicotine dependence
CPT/HCPCS: 99282

== ENCOUNTER 2024-07-12 10:56 | Emergency (ER) | payer MEDICARE, SELFPAY ==
[2024-07-12 10:57] VITALS: BP 143/72; PULSE 78; RESP 16; TEMP 37; O2SAT 98; BMI 32.3
--- NOTE | 2024-07-12 11:37 | EX.ED.DYSGE1 ---
HPI <NITHYA Ibarra - Last Filed: 07/12/24 13:02> History of Present Illness Chief Complaint: Shortness of Breath Narrative Narrative: Patient is a 69-year-old male with history of hypertension hyperlipidemia, GERD who presents to the [facility] for reevaluation for shortness of breath. Patient states that shortness of breath is episodic. Pay states sometimes when he is just sitting there watching TV he feels like he cannot get a good breath. Patient denies any fever or chills. Patient was seen here twice on July 04, 2024. Both the same issue. Patient states this is making him very anxious. He is here for evaluation. [facility] <NITHYA Ibarra - Last Filed: 07/12/24 13:02> [facility] Medical History Hyperlipidemia Hypertension Back injury Kidney stone Home Medications ?Medication ?Instructions ?Recorded ?Last Taken ?Type aspirin 81 mg capsule 81 mg PO DAILY 08/03/21 Unknown History metoprolol tartrate 50 mg tablet 50 mg PO DAILY 08/03/21 Unknown History ramipril 2.5 mg capsule 10 mg PO DAILY 08/03/21 Unknown History gabapentin 300 mg capsule 300 mg PO BID 04/24/22 Unknown History lansoprazole 30 mg capsule,delayed 30 mg PO DAILY 04/24/22 Unknown History release rosuvastatin 40 mg tablet 40 mg PO QHS 04/24/22 Unknown History Allergy/AdvReac Type Severity Reaction Status Date / Time No Known Allergies Allergy Verified 07/12/24 10:56 Surgical History H/O heart artery stent Social History Smoking Status: Former smoker ROS <NITHYA Ibarra - Last Filed: 07/12/24 13:02> ROS ED ROS Narrative Constitutional: Negative for fever, chills, weight loss, weakness Eyes: Negative for vision loss, vision change, double vision ENT: Negative for any sore throat, ear pain, congestion Cardiovascular: Negative for any chest pain, tightness, palpitations Respiratory: Negative for any cough, sputum production, hemoptysis, dyspnea on exertion, orthopnea. Positive for episodic dyspnea Gastrointestinal: Negative for any abdominal pain, nausea, vomiting, diarrhea, constipation, blood in stool, blood in vomit : Negative for any urinary frequency, dysuria, retention, blood in urine Muscle skeletal: Negative for any neck pain, back pain Neurological: Negative for any headache, syncope, dizziness Skin: Negative for any rashes, itching, abrasions, lacerations Psychiatric: Negative for any depression, anxiety, stress, suicidal ideation, homicidal ideation Hematologic: Negative for any excessive bruising, easy bleeding EXAM <NITHYA Ibarra - Last Filed: 07/12/24 13:02> Physical Exam Narrative Exam Narrative: Vital signs reviewed. HEET: Head normocephalic atraumatic, TMs clear bilaterally. Posterior pharynx is clear, moist mucous membranes. Nares clear bilaterally. Neck: Supple with no lymphadenopathy or tenderness. No signs of meningismus. Cardiac: Regular rate and rhythm no murmurs gallops or rubs, equal peripheral pulses bilaterally. Respiratory: Lungs clear to auscultation bilaterally. No chest tenderness. Abdomen: Soft, nontender, nondistended. No abdominal bruit or pulsatile masses. No hepatosplenomegaly Extremities: No peripheral edema, no signs of gross trauma or deformity. Active full range of motion of all extremities. Neuro: Cranial nerves II through XII intact, no focal neurological deficits. Skin: Clean dry and intact with no rash, purpura, petechiae, vesicles or pustules. Backs/flank: No CVA tenderness, no midline spinal tenderness, no deformity. Psych: Normal mood and affect. No SI, HI or acute psychosis. Const Vital Signs: 07/12/24 10:57 07/12/24 12:55 Temperature 98.6 F Temperature Source Oral Pulse Rate 78 71 Respiratory Rate 16 19 H Blood Pressure 143/72 H Blood Pressure Mean 95 Pulse Ox 98 96 Oxygen Delivery Method Room Air <Dr. Hugh Howell MD - Last Filed: 07/12/24 13:06> Physical Exam Const Vital Signs: 07/12/24 10:57 07/12/24 12:55 Temperature 98.6 F Temperature Source Oral Pulse Rate 78 71 Respiratory Rate 16 19 H Blood Pressure 143/72 H Blood Pressure Mean 95 Pulse Ox 98 96 Oxygen Delivery Method Room Air MDM <NITHYA Ibarra - Last Filed: 07/12/24 13:02> [facility] Treatment and Re-Evaluation :: Differential diagnosis includes however is not limited to: Anxiety, COPD, ACS, NH, sleep apnea Patient appears generally well, vital signs are stable, patient is nontoxic-appearing. Presenting to the emergency department for complaints of ongoing episodic dyspnea. On my physical examination, there is no red flag signs. Patient was in no obvious distress. Speak without difficulty, negative for any stridor. Lung sounds equal bilaterally. Looking at the patient's past visits in the last week, he was seen 2 times on July 04, 2024. Had a full cardiac workup, x-rays and this was all negative. After speaking with the patient, it does appear that the patient did quit smoking couple months ago, and also quit the nicotine without any sort of tapering. We spoke with the patient offering another examination, however patient did recently have a full workup that was negative. At this time, patient be placed back on his nicotine, he will then taper himself off. He will follow-up with his PCP. Patient is agreeable with this plan. If he feels worse, has any other concerns he will return here. All questions answered, stable for discharge. <Dr. Hugh Howell MD - Last Filed: 07/12/24 13:06> [facility] Narrative Medical decision making narrative: I have personally performed a face to face assessment of the patient and have reviewed the MAD[facility] Note. I performed a substantive portion of the visit including all aspects of the following. My lund findings include: History is [69-year-old male several months ago quit smoking. He has been using nicotine gum or mints. He said he stopped them cold turkey a week or 2 ago. Since that time he says episodes of subjective transient dyspnea. No chest pain. No significant cough. No fever. No leg pain or swelling. He was seen in emergency department a week or so ago and extensive workup that was negative. He said these episodes come very quickly and go very quickly. He will have several in an hour. Currently symptom-free.] Exam is [well-appearing 69-year-old male. Vital signs stable afebrile. Pulse ox 90% on room air no signs hypoxia. No distress. H EENT exam unremarkable. Moist mucous members. Neck nontender no JVD. No lymphadenopathy. Lungs clear to auscultation bilaterally. Heart regular rate and rhythm rate about 70 no murmur. Chest wall ribs nontender. Abdomen soft nontender. Moving all 4 extremities. Calves are nontender without edema or cords. Dorsi plantarflexion intact. Equal symmetrical radial pulses. 5-5 pan washer hand strength. Back nontender. Neurologically is awake and alert no focal motor deficits.] Medical Decision Making [I reviewed the patient's recent workup that was unremarkable and he was mildly anemic. His episodes are transient. This may be secondary to anxiety. Or him stopping his nicotine product abruptly. He can go back on the nicotine. He is in a wean it slowly. Needs a follow-up with his primary care physician. I did offer the patient to redo the workup he just had I explained to him by his exam being normal I did not think it would show me much and he deferred to have further testing done at this time.] Other additions or changes: [None] History & Record Review Additional record(s) reviewed:: Prior inpatient record, Prior outpatient record, Prior ED visit and Prior labs Discharge Plan Triage Chief Complaint: Shortness of Breath ED Midlevel Provider: Inocente Haney ED Provider: Hugh Howell Dx/Rx/DC Orders Clinical Impression: Dyspnea, Anxiety Instructions: ED Anxiety Reaction, ED Dyspnea Prescriptions: No Action ramipril 2.5 mg capsule 10 mg PO DAILY Patient Comments: TAKE 1 CAPSULE BY MOUTH EVERY DAY metoprolol tartrate 50 mg tablet 50 mg PO DAILY Patient Comments: TAKE 1 TABLET BY MOUTH TWICE A DAY aspirin 81 mg Capsule 81 mg PO DAILY lansoprazole 30 mg capsule,delayed release(DR/EC) 30 mg PO DAILY Patient Comments: Take 1 capsule by mouth once daily. gabapentin 300 mg capsule 300 mg PO BID Patient Comments: Take 1 capsule in morning, 1 capsule in afternoon and 2 capsules at night rosuvastatin 40 mg tablet 40 mg PO QHS Patient Comments: TAKE 1 TABLET BY MOUTH DAILY AT BEDTIME Primary Care Provider: Harvinder Franklin Referrals: Harvinder Franklin MD [Primary Care Provider] - Activity Restrictions/Additional Instructions: Please follow-up outpatient. Return for any worsening symptoms Print Language: Syriac Disposition Disposition: Home, Self Care
[2024-07-12 12:55] VITALS: PULSE 71; RESP 19; O2SAT 96
== END 2024-07-12 13:13 | disposition home or self-care (01) ==
PROVIDERS: Emergency Provider Emergency Medicine; PCP Family Medicine; Visit Provider Emergency Medicine
DX: R06.00 Dyspnea, unspecified (principal); F41.9 Anxiety disorder, unspecified; E78.5 Hyperlipidemia, unspecified; D64.9 Anemia, unspecified; I10 Essential (primary) hypertension; K21.9 Gastro-esophageal reflux disease without esophagitis; Z79.82 Long term (current) use of aspirin; Z87.891 Personal history of nicotine dependence
CPT/HCPCS: 99282